=== PATIENT | male | born 1990 | race Caucasian/White ===

== ENCOUNTER 2016-10-02 20:04 | Emergency (ER) | payer SELFPAY ==
[~2016-10-02] VITALS: Ht 175.3 cm; Wt 79.4 kg
[2016-10-02 20:19] VITALS: BP 129/92
--- NOTE | 2016-10-02 23:00 | NUR ---
ER MD AWARE OF PATIENT'S STATUS.
--- NOTE | 2016-10-03 00:05 | NUR ---
PT TAKEN TO [facility] FROM [facility]
--- NOTE | 2016-10-03 00:11 | NUR ---
PT RETURN FROM XRAY TO LOBBY
--- NOTE | 2016-10-03 00:27 | NUR ---
PT TAKEN TO BED 2
--- NOTE | 2016-10-03 00:50 | NUR ---
PATIENT PRESENTS TO ED WITH RT SHOULDER PAIN . PT STATES HE DISLOCATED HIS SHOULDER EARLY THIS MORNING AND WENT TO [facility] WHERE THE REPLACED HIS DISLOCATED SHOULDER. PT REPORTS HE FEELS LIKE JOINT IS OUT OF PLACE AGAIN . DENIES N/V/D; SKIN IS PINK/WARM/DRY; AAOX4 WITH EVEN AND STEADY GAIT; LUNGS CLEAR BL; HR EVEN AND REGULAR; PT DENIES ANY FEVER, CP, SOB, OR COUGH AT THIS TIME; PATIENT STATES PAIN OF 6/10 AT THIS TIME; VSS; PATIENT POSITIONED FOR COMFORT; HOB ELEVATED; BEDRAILS UP X2; BED DOWN. ER MD MADE AWARE OF PT STATUS.
--- NOTE | 2016-10-03 01:25 | NUR ---
Dr. Garcia evaluating patient at bedside.
[2016-10-03] MEDS ORDERED: MORPHINE SULFATE 10 MG/ML SYR ONE (01:34)
[2016-10-03] MEDS ORDERED: MORPHINE SULFATE 10 MG/ML SYR IM ONE (02:05)
[2016-10-03] MEDS ORDERED: PROPOFOL 200 MG/20 ML VIAL IV ONE (02:20)
--- NOTE | 2016-10-03 02:29 | NUR ---
TIME OUT FOR CONSIOUS SEDATION PROCEDURE
--- NOTE | 2016-10-03 02:30 | NUR ---
MEDICATION GIVEN. PROCEDURE STARTED AT 023
--- NOTE | 2016-10-03 02:35 | NUR ---
4ML OF PROPOFOL GIVEN. PROCEDURE ATTEMPTED AGAIN
--- NOTE | 2016-10-03 02:38 | NUR ---
5ML OF PROPAFOL GIVEN AND PROCEDURE STARTED AGAIN
--- NOTE | 2016-10-03 02:40 | NUR ---
PROCEDURE SUCCESSFULLY COMPLETED
--- NOTE | 2016-10-03 02:43 | NUR ---
PT A&0X1. EYES OPEN TO STIMULATION
--- NOTE | 2016-10-03 02:45 | NUR ---
PT A&OX4. PT ANSWERS CORRECTLY TO NAME, DATE AND BIRTHDAY
--- NOTE | 2016-10-03 02:53 | NUR ---
X-Ray at bedside.
[2016-10-03 03:50] VITALS: BP 141/96
== END 2016-10-03 03:50 | disposition home or self-care (01) ==
LOC: MED 20:04
DX: S43.014A Anterior dislocation of right humerus, initial encounter (principal); X58.XXXA Exposure to other specified factors, initial encounter; Y93.67 Activity, basketball; Y92.310 Basketball court as the place of occurrence of the external cause; Y99.8 Other external cause status
CPT/HCPCS: 23650; 73020; 73030; 93005; 96372; 99152; 99285; J2270; J2704; Q0092

== ENCOUNTER 2016-10-11 10:09 | Emergency (ER) | payer SELFPAY ==
[~2016-10-11] VITALS: Ht 175.3 cm; Wt 71.2 kg
[2016-10-11 10:16] VITALS: BP 148/88
--- NOTE | 2016-10-11 10:27 | NUR ---
PT AMBULATED TO BED 3 AT THIS TIME.
--- NOTE | 2016-10-11 10:30 | NUR ---
26/M c/o pain to right shoulder TODAY. Pt stated, he was getting up from bed and felt shoulder discolocate. Hx multiple shoulder dislocation. CMS INTACT.
--- NOTE | 2016-10-11 11:20 | NUR ---
INFORMED PT OF SANDBAGS WILL BE USED TO HAVE SHOULDER REDUCED BACK TO PLACE. SPOKE WITH PT AND PT AGREED. WRIST RESTRAINT APPLIED AND SANDBAGS TO ROPE IN A SPLIP KNOT OVER RESTRAINT. PT SOON, REFUSED STATING, "THIS FEELS STUPID, WHY CAN'T I HAVE JUST PROPOFOL AND POPPED BACK INTO PLACE"?. EXPLAINED, USING PROPOFOL HAS IT'S RISK AND WE SHOULD ATTEMPT THIS BEFORE CHOOSING OTHER OPTIONS. PT MEDICATED FOR PAIN, IM MEDICATION. PT REFUSED CRYOTHERAPY TO SHOULDER.
[2016-10-11] MEDS ORDERED: KETOROLAC 60 MG/2 ML VIAL IM ONE (11:23)
--- NOTE | 2016-10-11 11:24 | NUR ---
TORADOL 60MG/2ML GIVEN IM TO RT GLUETUS MEDIUS AT THIS TIME PER ER MD DR. METZ ORDER; PT TOLERATED WELL. WILL CONTINUE TO MONITOR.
--- NOTE | 2016-10-11 11:34 | NUR ---
SPOKE WITH PT AGAIN, PT AGREED TO HAVE SANDBAGS REAPPLIED.
--- NOTE | 2016-10-11 11:35 | NUR ---
DR. METZ AT BEDSIDE. PERFORMED SCAPULAR MANIPULATION TO PT'S RIGHT SHOULDER. CMS INTACT. SHOULDER IN PLACE. PT INSTRUCTED NOT TO MOVE SHOULDER BY RELAXING R ARM WHILE TRYING TO APPLY SLING. DR. METZ HOLDING SHOULD IN PLACE. PT ACTIVELY MOVING R ARM AND R SHOULDER FORWARD WITH TENSING R ARM RATHER THAN RELAXING R ARM/SHOULDER.
--- NOTE | 2016-10-11 11:45 | NUR ---
XRAY AT BEDSIDE.
--- NOTE | 2016-10-11 11:46 | NUR ---
PT REFUSED XRAY. STATING R SHOULD IS NOT IN PLACE. DR. METZ TO BEDSIDE. APPLYING SHOULDER SCAPULATION TO R SHOULDER AGIN.
--- NOTE | 2016-10-11 11:50 | NUR ---
PT STATES PAIN MEDICATION EFFECTIVE IN RELIEVING PAIN; STATES PAIN 6/10 AT THIS TIME; NADR AT THIS TIME. WILL CONTINUE TO MONITOR.
--- NOTE | 2016-10-11 12:00 | NUR ---
SHOULD IN PLACE. PT INSISTS IT DISLOCATING AFTER PT MOVING R SHOULDER, REQUESTING TRANSFER. DR. METZ AWARE.
--- NOTE | 2016-10-11 12:30 | NUR ---
PT ACCEPTED TO [facility] BY DR. OBRIEN. PT MADE AWARE. WILL GIVE REPORT. ETA OF EMS TRANSPORT 20MINS.
--- NOTE | 2016-10-11 12:35 | NUR ---
Patient to be transferred to [facility]ED. Is being transferred due to SPECIALIZED LEVEL OF CARE. Receiving facility has accepting physician and available space. ER physician has signed transfer form. Patient or responsible constitution party has agreed to transfer and signed form. Patient belongings inventoried and will be sent with patient. Copy of nursing notes, lab reports, EKG, Physicians Orders and X-rays to be sent with patient. Report called to RYAN SALCEDO at receiving facility. [facility] ambulance service has been called for transfer. ETA is 10 MIN.
--- NOTE | 2016-10-11 12:42 | NUR ---
EMS TRANSPORT AT BEDSIDE.
[2016-10-11 12:47] VITALS: BP 144/90
== END 2016-10-11 12:45 | disposition short-term general hospital (02) ==
LOC: MED 10:09
DX: M24.411 Recurrent dislocation, right shoulder (principal); S43.004A Unspecified dislocation of right shoulder joint, initial encounter; X58.XXXA Exposure to other specified factors, initial encounter; Y93.89 Activity, other specified; Y92.89 Other specified places as the place of occurrence of the external cause; Y99.8 Other external cause status
CPT/HCPCS: 23650; 73030; 99285; J1885; Q0092

== ENCOUNTER 2016-11-26 06:00 | Emergency (ER) | payer SELFPAY ==
--- NOTE | 2016-11-26 06:10 | NUR ---
PATIENT LEFT WITHOUT BEING SEEN BY DR. CENTENO. PT.IN CUSTODY AND TAKEN BY [place] [employer]. NO FURTHER CARE PROVIDED FOR PATIENT.
== END 2016-11-26 06:10 | disposition left against medical advice (07) ==
LOC: MED 06:00
DX: M25.512 Pain in left shoulder (principal); Z53.21 Procedure and treatment not carried out due to patient leaving prior to being seen by health care provider

== ENCOUNTER 2016-11-26 06:35 | Emergency (ER) | payer SELFPAY ==
[~2016-11-26] VITALS: Ht 175.3 cm; Wt 79.4 kg
[2016-11-26 06:39] VITALS: BP 146/94
--- NOTE | 2016-11-26 06:40 | NUR ---
PT. BIB PD TO ER OF1
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
--- NOTE | 2016-11-26 07:18 | NUR ---
Pt report given to RYAN CRUZ. Transfer of care at this time.
[2016-11-26 07:45] VITALS: BP 146/94
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
== END 2016-11-26 07:46 ==
LOC: MED 06:35
DX: S43.402A Unspecified sprain of left shoulder joint, initial encounter (principal); S09.90XA Unspecified injury of head, initial encounter; X58.XXXA Exposure to other specified factors, initial encounter; Y93.89 Activity, other specified; Y92.89 Other specified places as the place of occurrence of the external cause; Y99.8 Other external cause status